=== PATIENT | female | born 1970 | race Caucasian/White ===

== ENCOUNTER 2018-02-16 12:55 | Emergency (ER) | payer OTHER ==
[2018-02-16] MEDS ORDERED: Sodium Chloride 0.9% 1,000 ML IV ONE (13:44)
[2018-02-16] MEDS ORDERED: Alum-Mag Hydrox-Simethicone Susp (30 mL) PO STA (13:46)
--- NOTE | 2018-02-16 13:47 | C.PDOC ---
History Of Present Illness 47 y/o female presents to the ED complaining of cramping epigastric discomfort with scant but frequent small liquid stools, 3-4 per day for 2 months. Patient recently immigrated here from [place] on 01/05/18. She states she lives a sedentary lifestyle and does not work. Patient eats a diet of rice, bread, and poor PO fluids. She took Imodium x1 tab 1 week ago with no improvement. Denies blood in the stool. Time Seen by Provider: 02/16/18 13:32 Chief Complaint (Nursing): Abdominal Pain History Per: Patient History/Exam Limitations: no limitations Onset/Duration Of Symptoms: Days Current Symptoms Are (Timing): Still Present Location Of Pain/Discomfort: Epigastric Past Medical History Reviewed: Historical Data, Nursing Documentation, Vital Signs Vital Signs: Last Vital Signs Temp 97.5 F L 02/16/18 15:45 Pulse 92 H 02/16/18 15:45 Resp 16 02/16/18 15:45 BP 125/84 02/16/18 15:45 Pulse Ox 100 02/16/18 17:08 - Medical History PMH: Diabetes Family History: States: No Known Family Hx - Social History Hx Tobacco Use: No Hx Alcohol Use: No Hx Substance Use: No - Immunization History Hx Tetanus Toxoid Vaccination: No Hx Influenza Vaccination: No Hx Pneumococcal Vaccination: No Review Of Systems Except As Marked, All Systems Reviewed And Found Negative. Constitutional: Negative for: Fever, Chills Gastrointestinal: Positive for: Abdominal Pain, Diarrhea. Negative for: Vomiting, Hematochezia Physical Exam - Physical Exam Appears: Non-toxic, No Acute Distress Skin: Normal Color, Warm, Dry Head: Atraumatic, Normacephalic Eye(s): bilateral: Normal Inspection, PERRL, EOMI Nose: Normal Oral Mucosa: Moist Neck: Normal ROM, Supple Chest: Symmetrical Cardiovascular: Rhythm Regular, No Murmur Respiratory: Normal Breath Sounds, No Rales, No Rhonchi, No Wheezing Gastrointestinal/Abdominal: Bowel Sounds (Dull to percussion), Soft, No Tenderness, Other (Obese abdomen) Extremity: Bilateral: Atraumatic, Normal Color And Temperature, Normal ROM Neurological/Psych: Oriented x3, Normal Speech ED Course And Treatment - Laboratory Results Result Diagrams: 02/16/18 14:05 02/16/18 14:05 Lab Interpretation: Normal (ua neg.) O2 Sat by Pulse Oximetry: 100 (RA) Pulse Ox Interpretation: Normal - Radiology CXR: Interpreted by Me CXR Interpretation: Yes: No Acute Disease - Other Rad abd x 2 X-Ray: Interpreted by Me (+FOS R>L) Reevaluation Time: 15:23 Reassessment Condition: Improved - Physician Consult Information Outcome Of Conversation: 1400: d/w Dr. Geo Valenzuela- familiar to pt- recommends Flagyl empirically for Amoebiasis Medical Decision Making Medical Decision Making: Impression: though travel from [place] 01/05/18 increases suspicion for [place], pt without belly pain nor bloody diarrhea. Indeed pt with large stool R colon c/w constipation which could benefit from a laxative. no diarrhea in ED poor exercise, diet based on bread and rice, and scant water intake, especially in a DM highly constipating Disposition Doctor Will See Patient In The: Office Counseled Patient/Family Regarding: Studies Performed, Diagnosis - Disposition Referrals: Eden Valenzuela MD [Staff Provider] - Disposition: HOME/ ROUTINE Disposition Time: 15:24 Condition: GOOD Additional Instructions: Consider a laxative of your choice for constipation Drink a bottle of Mag Citrate now and re-evaluate your abdominal discomfort after using the bathroom 2-3 times. drink more water daily. 45 minute power walk 5 days/week. follow-up w Dr. Geo Valenzuela in 1 week as needed. Instructions: Constipation, Adult (DC) Forms: [facility] ([place]vian) - Clinical Impression Clinical Impression: Abdominal pain, Diarrhea - Scribe Statement The provider has reviewed the documentation as recorded by the Scribe (Josefina George) Provider Attestation: All medical record entries made by the Scribe were at my direction and personally dictated by me. I have reviewed the chart and agree that the record accurately reflects my personal performance of the history, physical exam, medical decision making, and the department course for this patient. I have also personally directed, reviewed, and agree with the discharge instructions and disposition.
[2018-02-16] MEDS ORDERED: Alum-Mag Hydrox-Simethicone Susp (30 mL) ONE (13:58)
[2018-02-16] MEDS ORDERED: Sodium Chloride 0.9% 1,000 ML ONE (13:58)
[2018-02-16 14:10] LABS: BASO # 0.1 K/uL (0.0-0.2); BASO % 0.8 % (0.0-2.0); EOS # 0.1 K/uL (0.0-0.7); EOS % 0.6 % (0.0-4.0); HEMOGLOBIN 11.3 g/dL (11.0-16.0); LYMPH # 1.7 K/uL (1.0-4.3); LYMPH % 18.5 % (20.0-40.0); MEAN CELL VOLUME 78.4 fL (81.0-99.0); MEAN CORPUSCULAR HEMOGLOBIN 26.2 pg (27.0-31.0); MEAN CORPUSCULAR HGB CONC 33.4 g/dL (33.0-37.0); MEAN PLATELET VOLUME 7.7 fL (7.2-11.7); MONO # 0.6 K/uL (0.0-0.8); MONO % 6.3 % (0.0-10.0); NEUT # 6.8 K/uL (1.8-7.0); NEUT % 73.8 % (50.0-75.0); NRBC % 0.1 % (0.0-2.0); RBC 4.32 Mil/uL (3.80-5.20); RED CELL DISTRIBUTION WIDTH 14.7 % (11.5-14.5); WHITE BLOOD COUNT 9.2 K/uL (4.8-10.8)
[2018-02-16 14:12] LABS: HCG,QUALITATIVE URINE NEGATIVE (NEGATIVE)
[2018-02-16 14:13] LABS: SQUAMOUS EPITHIAL 1 /hpf (0-5); URINE BILIRUBIN NEGATIVE (NEGATIVE); URINE BLOOD NEGATIVE (NEGATIVE); URINE CLARITY Hazy (Clear); URINE COLOR Yellow (YELLOW); URINE GLUCOSE (UA) 2+ mg/dL (Normal); URINE LEUKOCYTE ESTERASE NEG Leu/uL (Negative); URINE PROTEIN NEGATIVE (NEGATIVE); URINE UROBILINOGEN NORMAL mg/dL (0.2-1.0)
[2018-02-16 14:25] LABS: ALB/GLOB RATIO 1.1 (1.0-2.1); AST/SGOT 21 U/L (14-36); BLOOD UREA NITROGEN 11 mg/dL (7-17); CALCIUM 9.1 mg/dl (8.6-10.4); GFR AFRICAN-AMERICAN > 60; GFR NON-AFRICAN AMERICAN > 60; LIPASE 59 U/L (23-300)
[2018-02-16 14:28] LABS: ALT/SGPT < 6 U/L (9-52)
--- NOTE | 2018-02-16 15:00 | RAD ---
PROCEDURE: Radiographs of the chest and abdomen (obstructive series) HISTORY: Diarrhea COMPARISON: No prior. TECHNIQUE: AP radiograph of the chest, with upright and supine radiographs of the abdomen. FINDINGS: CHEST: Lungs: Clear. Cardiovascular: Normal size heart. No pulmonary vascular congestion. Pleura: No pleural fluid. No pneumothorax. Other findings: None. ABDOMEN AND PELVIS: Bowel: Unremarkable bowel gas pattern. No evidence of mechanical obstruction. Free air: None. Bones: Unremarkable. Other findings: None. IMPRESSION: Unremarkable radiographs of chest and abdomen. No evidence of mechanical bowel obstruction.
[2018-02-16 15:53] VITALS: BP 125/84; PULSE 92; RESP 16; TEMP 97.5
[2018-02-16 16:46] VITALS: O2SAT 100
== END 2018-02-16 15:54 | disposition home or self-care (01) ==
LOC: C.ER 12:55
DX: R10.13 Epigastric pain (principal); R19.7 Diarrhea, unspecified
CPT/HCPCS: 74022; 80053; 81001; 83690; 84703; 85025; 96361; 96374; 99285; J1885; J7040